=== PATIENT | female | born 1950 | race Caucasian/White ===

== ENCOUNTER 2018-06-11 14:04 | Inpatient (IN) ==
[2018-06-11 14:26] LABS: Basophils % 0.3 % (0.0-0.8); Eosinophils # 0.2 10*3/uL (0.0-0.87); Eosinophils % 2.2 % (0.00-10.9); Hematocrit 36.2 VOL% (35.7-47.0); Hemoglobin 12.1 GM/DL (12.0-16.0); Immature Granulocytes % 0.3 %; Immature Granulocytes Absolute 0.03 #; Lymphocytes # 2.1 10*3/uL (1.4-4.0); Lymphocytes % 22.9 % (21.3-54.2); Mean Corpuscular HGB Conc 33.4 GM/DL (32-36); Mean Corpuscular Hemoglobin 29 PG (27-34); Mean Corpuscular Volume 85.4 FL (87-102); Mean Platelet Volume 9.2 FL (9.6-12.0); Monocytes # 0.7 10*3/uL (0.11-0.8); Monocytes % 7.3 % (1.7-12.7); Neutrophils # 6.2 10*3/uL (1.4-7.4); Platelet Count 224 T/CUMM (130-400); Red Blood Count 4.24 MC/CUMM (3.8-5.5); Red Cell Distribution Width 13.2 % (9.3-17.3); White Blood Count 9.2 T/CUMM (4-12)
[2018-06-11 14:45] LABS: PT Patient Result 10.2 SECS; Partial Thromboplastin Time 25.2 SECS (0-40)
[2018-06-11 15:55] LABS: Albumin 3.7 G/DL (3.4-5.0); Bilirubin,Total 0.4 MG/DL (0.2-1.0); Calcium 9.6 MG/DL (8.5-10.1); Osmolality,Calculated 280.5 MOS/KG (273-304); Potassium 3.5 MMOL/L (3.5-5.1)
[2018-06-11] MEDS ORDERED: FAMOTIDINE 20 MG/2 ML VIAL IV STA (16:20)
[2018-06-11] MEDS ORDERED: ALUM/MAG/SIMETH/LIDO VISC 1:1 30 ML BOTTLE PO STA (16:20)
[2018-06-11 18:37] LABS: Troponin I < 0.015 NG/ML (0.00-0.045)
[2018-06-11] MEDS ORDERED: GLUCAGON 1 MG VIAL IM PRN (19:08)
[2018-06-11] MEDS ORDERED: DEXTROSE 50% 25 GM/50 ML VIAL IV PRN (19:08)
[2018-06-11] MEDS ORDERED: ACETAMINOPHEN 325 MG TABLET PO PRN (19:08)
[2018-06-11] MEDS ORDERED: ONDANSETRON 4 MG/2 ML VIAL IV PRN (19:08)
[2018-06-11] MEDS: INSULIN REGULAR 100 UNIT/ML SUBCUT SCH ×2 (20:20→23:03)
[2018-06-11 20:34] LABS: Apearance,Urine Slightly Hazy (Clear); Bacteria,Urine Occasional /HPF (Few); Bilirubin,Urine Negative (Negative); Blood, Urine Negative (Negative); Glucose,Urine (UA) Negative (Negative); Ketones,Urine Negative (Negative); Nitrite,Urine Negative (Negative); Protein,Urine Negative; RBC,Urine <1 /HPF (0-4); Squamous Epithelial Cell,Urine Occasional /HPF (0-10); Urine Color Yellow (Yellow); Urine Specific Gravity 1.009 (1.001-1.035); Urine Urobilinogen < 2.0 EU/DL (0.2-1.0); WBC,Urine 4 /HPF (0-6)
[2018-06-11 20:56] LABS: Troponin I < 0.015 NG/ML (0.00-0.045)
[2018-06-11] MEDS ORDERED: SIMVASTATIN 10 MG TABLET PO SCH (21:00)
[2018-06-11] MEDS ORDERED: ENOXAPARIN 40 MG/0.4 ML SYRINGE SUBCUT SCH (21:00)
[2018-06-11] MEDS ORDERED: ATENOLOL 25 MG TABLET PO SCH ×2 (21:00→21:27)
[2018-06-11] MEDS ORDERED: MAGNESIUM CHLORIDE 64 MG TABLET PO SCH (21:00)
[2018-06-11] MEDS ORDERED: hydroCHLOROthiazide 12.5 MG CAPSULE PO SCH (21:00)
[2018-06-11] MEDS ORDERED: ATENOLOL 50 MG TABLET PO SCH (21:28)
[2018-06-11] MEDS: ATENOLOL 50 MG TABLET PO SCH (22:18)
[2018-06-11] MEDS: OLMESARTAN 20 MG TABLET PO SCH (22:18)
[2018-06-11] MEDS ORDERED: ATORVASTATIN 20 MG TABLET PO SCH (22:30)
[2018-06-12 04:55] LABS: Basophils % 0.4 % (0.0-0.8); Eosinophils # 0.2 10*3/uL (0.0-0.87); Eosinophils % 2.6 % (0.00-10.9); Hematocrit 35.7 VOL% (35.7-47.0); Hemoglobin 11.8 GM/DL (12.0-16.0); Immature Granulocytes % 0.2 %; Immature Granulocytes Absolute 0.02 #; Lymphocytes # 2.8 10*3/uL (1.4-4.0); Lymphocytes % 31.3 % (21.3-54.2); Mean Corpuscular HGB Conc 33.1 GM/DL (32-36); Mean Corpuscular Hemoglobin 28 PG (27-34); Mean Corpuscular Volume 85.8 FL (87-102); Mean Platelet Volume 9.6 FL (9.6-12.0); Monocytes # 0.7 10*3/uL (0.11-0.8); Monocytes % 7.8 % (1.7-12.7); Neutrophils # 5.2 10*3/uL (1.4-7.4); Neutrophils % 57.7 % (38.7-73.9); Platelet Count 222 T/CUMM (130-400); Red Blood Count 4.16 MC/CUMM (3.8-5.5); Red Cell Distribution Width 13.2 % (9.3-17.3)
[2018-06-12] MEDS: INSULIN REGULAR 100 UNIT/ML SUBCUT SCH ×4 (05:08→23:57)
[2018-06-12 05:31] LABS: Bilirubin,Total 1.2 MG/DL (0.2-1.0); Total Protein 6.9 G/DL (6.4-8.3)
[2018-06-12 05:32] LABS: Albumin 3.4 G/DL (3.4-5.0); Osmolality,Calculated 280.4 MOS/KG (273-304); Potassium 3.3 MMOL/L (3.5-5.1); Risk Ratio 4.54; VLDL CHOLESTEROL 51.8 MG/DL
[2018-06-12 05:41] LABS: Troponin I < 0.015 NG/ML (0.00-0.045)
[2018-06-12] MEDS ORDERED: POTASSIUM CHLORIDE 10 MEQ TABLET PO SCH (09:00)
[2018-06-12] MEDS: POTASSIUM CHLORIDE 10 MEQ TABLET PO SCH (10:43)
[2018-06-12] MEDS: ASPIRIN CHEW 81 MG TABLET PO SCH (10:43)
[2018-06-12] MEDS: ATORVASTATIN 20 MG TABLET PO SCH (10:43)
[2018-06-12] MEDS: PANTOPRAZOLE 40 MG TABLET PO SCH (10:43)
[2018-06-12] MEDS: MAGNESIUM CHLORIDE 64 MG TABLET PO SCH (10:43)
[2018-06-12] MEDS ORDERED: hydrALAZINE 20 MG/1 ML VIAL IV PRN (12:21)
[2018-06-12] MEDS: OMEGA 3 ACID ETHYL ESTERS 1 GM CAPSULE PO SCH ×2 (15:13→20:38)
[2018-06-12] MEDS: amLODIPine 5 MG TABLET PO SCH ×2 (15:13→20:39)
[2018-06-12] MEDS: metFORMIN 500 MG TABLET PO SCH (17:41)
[2018-06-12] MEDS ORDERED: PROMETHAZINE 25 MG/1 ML VIAL IM ONE (20:08)
[2018-06-12] MEDS ORDERED: BUTALBITAL/ACETAMIN/CAFFEINE 50-325-40 MG TABLET PO PRN (20:09)
[2018-06-12] MEDS: ATENOLOL 50 MG TABLET PO SCH (20:38)
[2018-06-12] MEDS: OLMESARTAN 20 MG TABLET PO SCH (20:38)
[2018-06-13] MEDS: INSULIN REGULAR 100 UNIT/ML SUBCUT SCH ×3 (06:08→19:10)
[2018-06-13] MEDS ORDERED: PROPOFOL 200 MG/20 ML VIAL IV ONE (09:00)
[2018-06-13] MEDS ORDERED: COENZYME Q10 100 MG CAPSULE PO SCH (09:00)
[2018-06-13] MEDS ORDERED: LIDOCAINE 1% 5 ML VIAL ONE (09:00)
[2018-06-13] MEDS ORDERED: CHOLECALCIFEROL 1,000 UNIT TABLET PO SCH (09:00)
[2018-06-13] MEDS: amLODIPine 5 MG TABLET PO SCH ×2 (09:05→20:25)
[2018-06-13] MEDS: metFORMIN 500 MG TABLET PO SCH ×2 (09:05→17:44)
[2018-06-13] MEDS: ATORVASTATIN 20 MG TABLET PO SCH (09:05)
[2018-06-13] MEDS: PANTOPRAZOLE 40 MG TABLET PO SCH (10:50)
[2018-06-13] MEDS: ASPIRIN CHEW 81 MG TABLET PO SCH (10:50)
[2018-06-13] MEDS: POTASSIUM CHLORIDE 10 MEQ TABLET PO SCH (10:50)
[2018-06-13] MEDS: OMEGA 3 ACID ETHYL ESTERS 1 GM CAPSULE PO SCH ×2 (10:50→20:25)
[2018-06-13] MEDS: FLUCONAZOLE 100 MG TABLET PO SCH (14:34)
[2018-06-13] MEDS: OLMESARTAN 20 MG TABLET PO SCH (20:25)
[2018-06-13] MEDS: ATENOLOL 50 MG TABLET PO SCH (20:25)
[2018-06-14] MEDS: INSULIN REGULAR 100 UNIT/ML SUBCUT SCH ×3 (01:46→11:22)
[2018-06-14] MEDS: MAGNESIUM CHLORIDE 64 MG TABLET PO SCH (08:43)
[2018-06-14] MEDS: POTASSIUM CHLORIDE 10 MEQ TABLET PO SCH (08:43)
[2018-06-14] MEDS: amLODIPine 5 MG TABLET PO SCH (08:43)
[2018-06-14] MEDS: FLUCONAZOLE 100 MG TABLET PO SCH (08:43)
[2018-06-14] MEDS: OMEGA 3 ACID ETHYL ESTERS 1 GM CAPSULE PO SCH (08:44)
[2018-06-14] MEDS: metFORMIN 500 MG TABLET PO SCH (08:44)
[2018-06-14] MEDS: PANTOPRAZOLE 40 MG TABLET PO SCH (08:44)
[2018-06-14] MEDS: ASPIRIN CHEW 81 MG TABLET PO SCH (08:44)
[2018-06-14] MEDS: ATORVASTATIN 20 MG TABLET PO SCH (08:44)
[2018-06-14 11:40] VITALS: BP 139/74
== END 2018-06-14 12:08 | disposition home or self-care (01) | DRG 370 ==
LOC: N.ED 14:04 → N.EDINP 17:52 → N.ICU 19:10 → N.3E 06-13 06:06
PROVIDERS: ADMIT Internal Medicine; ATTEND Internal Medicine

== ENCOUNTER 2018-07-03 12:50 | Observation (INO) ==
[2018-07-03] MEDS ORDERED: ASPIRIN 325 MG TABLET PO STA (13:15)
[2018-07-03] MEDS ORDERED: NITROGLYCERIN SL 0.4 MG TABLET SL STA (13:44)
[2018-07-03 13:53] LABS: Basophils % 0.3 % (0.0-0.8); Eosinophils # 0.2 10*3/uL (0.0-0.87); Eosinophils % 1.7 % (0.00-10.9); Hematocrit 36.6 VOL% (35.7-47.0); Hemoglobin 12.2 GM/DL (12.0-16.0); Immature Granulocytes % 0.3 %; Immature Granulocytes Absolute 0.03 #; Lymphocytes # 1.8 10*3/uL (1.4-4.0); Lymphocytes % 20.9 % (21.3-54.2); Mean Corpuscular HGB Conc 33.3 GM/DL (32-36); Mean Corpuscular Hemoglobin 29 PG (27-34); Mean Corpuscular Volume 85.7 FL (87-102); Mean Platelet Volume 9.3 FL (9.6-12.0); Monocytes # 0.6 10*3/uL (0.11-0.8); Neutrophils % 69.8 % (38.7-73.9); Platelet Count 211 T/CUMM (130-400); Red Blood Count 4.27 MC/CUMM (3.8-5.5); Red Cell Distribution Width 13.7 % (9.3-17.3); White Blood Count 8.7 T/CUMM (4-12)
[2018-07-03 14:47] LABS: Albumin 3.9 G/DL (3.4-5.0); Bilirubin,Total 0.7 MG/DL (0.2-1.0); Calcium 9.6 MG/DL (8.5-10.1); Osmolality,Calculated 274.7 MOS/KG (273-304); Total Protein 7.2 G/DL (6.4-8.3)
[2018-07-03] MEDS ORDERED: DOCUSATE SODIUM 100 MG CAPSULE PO PRN (16:10)
[2018-07-03] MEDS ORDERED: NITROGLYCERIN SL 0.4 MG TABLET SL PRN (16:10)
[2018-07-03] MEDS ORDERED: LACTULOSE 20 GM/30 ML UDCUP PO PRN (16:10)
[2018-07-03] MEDS ORDERED: ONDANSETRON 4 MG/2 ML VIAL IV PRN (16:10)
[2018-07-03] MEDS ORDERED: ACETAMINOPHEN 325 MG TABLET PO PRN (16:10)
[2018-07-03] MEDS ORDERED: MORPHINE 4 MG/1 ML VIAL IV PRN (16:10)
[2018-07-03] MEDS ORDERED: INFLUENZA VIRUS VACCINE 0.5 ML SYRINGE IM ONE (17:45)
[2018-07-03] MEDS: SODIUM CHLORIDE 0.9% 1,000 ML IV SCH (18:18)
[2018-07-03] MEDS: ENOXAPARIN 60 MG/0.6 ML SYRINGE SUBCUT SCH (18:18)
[2018-07-03] MEDS: PANTOPRAZOLE 40 MG TABLET PO SCH (18:18)
[2018-07-03] MEDS ORDERED: ATORVASTATIN 20 MG TABLET PO SCH (21:00)
[2018-07-03] MEDS ORDERED: OMEGA 3 ACID ETHYL ESTERS 1 GM CAPSULE PO SCH (21:00)
[2018-07-03] MEDS ORDERED: ATENOLOL 50 MG TABLET PO SCH (21:00)
[2018-07-03] MEDS: hydroCHLOROthiazide 12.5 MG CAPSULE PO SCH (22:08)
[2018-07-03] MEDS: OLMESARTAN 20 MG TABLET PO SCH (22:08)
[2018-07-04 04:56] LABS: Basophils % 0.3 % (0.0-0.8); Eosinophils # 0.2 10*3/uL (0.0-0.87); Eosinophils % 2.6 % (0.00-10.9); Hematocrit 33.1 VOL% (35.7-47.0); Hemoglobin 10.5 GM/DL (12.0-16.0); Immature Granulocytes % 0.1 %; Immature Granulocytes Absolute 0.01 #; Lymphocytes % 28.5 % (21.3-54.2); Mean Corpuscular HGB Conc 31.7 GM/DL (32-36); Mean Corpuscular Hemoglobin 27 PG (27-34); Mean Corpuscular Volume 86.4 FL (87-102); Mean Platelet Volume 9.4 FL (9.6-12.0); Monocytes # 0.6 10*3/uL (0.11-0.8); Monocytes % 8.7 % (1.7-12.7); Neutrophils # 4.1 10*3/uL (1.4-7.4); Neutrophils % 59.8 % (38.7-73.9); Platelet Count 178 T/CUMM (130-400); Red Blood Count 3.83 MC/CUMM (3.8-5.5); Red Cell Distribution Width 13.7 % (9.3-17.3); White Blood Count 6.9 T/CUMM (4-12)
[2018-07-04 05:28] LABS: Calcium 8.9 MG/DL (8.5-10.1); Osmolality,Calculated 281.3 MOS/KG (273-304); Potassium 3.7 MMOL/L (3.5-5.1); Risk Ratio 3.53; VLDL CHOLESTEROL 41.4 MG/DL
[2018-07-04] MEDS: ENOXAPARIN 60 MG/0.6 ML SYRINGE SUBCUT SCH (06:11)
[2018-07-04] MEDS: SODIUM CHLORIDE 0.9% 1,000 ML IV SCH (06:56)
[2018-07-04] MEDS ORDERED: MAGNESIUM SULF RIDER 2 GM in PREMIX 1 EACH IV PRN (08:50)
[2018-07-04] MEDS ORDERED: POTASSIUM CHLORIDE RIDER 10 MEQ in PREMIX 1 EACH IV PRN (08:50)
[2018-07-04] MEDS ORDERED: diphenhydrAMINE CAP 25 MG CAPSULE PO ONE (08:50)
[2018-07-04] MEDS ORDERED: DIAZEPAM 5 MG TABLET PO ONE (08:50)
[2018-07-04] MEDS ORDERED: COENZYME Q10 100 MG CAPSULE PO SCH (09:00)
[2018-07-04] MEDS ORDERED: MAGNESIUM CHLORIDE 64 MG TABLET PO SCH (09:00)
[2018-07-04] MEDS: OMEGA 3 ACID ETHYL ESTERS 1 GM CAPSULE PO SCH ×2 (09:27→16:41)
[2018-07-04] MEDS: ASPIRIN EC 81 MG TABLET PO SCH (12:29)
[2018-07-04] MEDS: PANTOPRAZOLE 40 MG TABLET PO SCH (12:29)
[2018-07-04] MEDS: ATENOLOL 50 MG TABLET PO SCH (12:29)
[2018-07-04] MEDS ORDERED: HEPARIN/NACL 0.9% 2 UNITS/ML 1,000 ML IV ONE (13:24)
[2018-07-04] MEDS ORDERED: LIDOCAINE 1%/EPI INJ 20 ML VIAL ONE (13:32)
[2018-07-04] MEDS ORDERED: MIDAZOLAM 2 MG/2 ML VIAL ONE (13:38)
[2018-07-04] MEDS ORDERED: fentaNYL 100 MCG/2 ML VIAL ONE (13:38)
[2018-07-04] MEDS ORDERED: ENOXAPARIN 40 MG/0.4 ML SYRINGE SUBCUT SCH (17:00)
[2018-07-04] MEDS: hydroCHLOROthiazide 12.5 MG CAPSULE PO SCH (20:44)
[2018-07-04] MEDS: OLMESARTAN 20 MG TABLET PO SCH (20:44)
[2018-07-04] MEDS ORDERED: ATORVASTATIN 20 MG TABLET PO SCH (21:00)
[2018-07-05 03:24] LABS: Basophils % 0.4 % (0.0-0.8); Eosinophils # 0.2 10*3/uL (0.0-0.87); Eosinophils % 2.4 % (0.00-10.9); Hematocrit 34.9 VOL% (35.7-47.0); Hemoglobin 11.2 GM/DL (12.0-16.0); Immature Granulocytes % 0.4 %; Immature Granulocytes Absolute 0.03 #; Lymphocytes # 1.9 10*3/uL (1.4-4.0); Mean Corpuscular HGB Conc 32.1 GM/DL (32-36); Mean Corpuscular Hemoglobin 28 PG (27-34); Mean Corpuscular Volume 86.8 FL (87-102); Mean Platelet Volume 9.5 FL (9.6-12.0); Monocytes # 0.7 10*3/uL (0.11-0.8); Monocytes % 9.7 % (1.7-12.7); Neutrophils # 4.2 10*3/uL (1.4-7.4); Neutrophils % 60.1 % (38.7-73.9); Platelet Count 187 T/CUMM (130-400); Red Blood Count 4.02 MC/CUMM (3.8-5.5); Red Cell Distribution Width 13.6 % (9.3-17.3)
[2018-07-05 04:02] LABS: Osmolality,Calculated 281.3 MOS/KG (273-304); Potassium 3.7 MMOL/L (3.5-5.1)
[2018-07-05 08:06] VITALS: BP 157/79
[2018-07-05] MEDS: ASPIRIN EC 81 MG TABLET PO SCH (09:11)
[2018-07-05] MEDS: OMEGA 3 ACID ETHYL ESTERS 1 GM CAPSULE PO SCH (09:11)
[2018-07-05] MEDS: PANTOPRAZOLE 40 MG TABLET PO SCH (09:11)
[2018-07-05] MEDS: ATENOLOL 50 MG TABLET PO SCH (09:12)
[2018-07-05] MEDS ORDERED: MAGNESIUM SULF RIDER 2 GM in PREMIX 1 EACH IV PRN (09:42)
[2018-07-05] MEDS ORDERED: MAGNESIUM SULF RIDER 4 GM in PREMIX 1 EACH IV PRN (09:42)
== END 2018-07-05 10:04 | disposition home or self-care (01) ==
LOC: N.ED 12:50 → N.EDINP 12:50 → N.TELEN 18:08
PROVIDERS: ADMIT Internal Medicine; ATTEND Internal Medicine
PROC: CLCCHCL (ICD-10-PCS; 2018-07-04 13:45)

== ENCOUNTER 2021-01-11 05:40 | Inpatient (IN) ==
[2021-01-11] MEDS ORDERED: ceFAZolin 1,000 MG VIAL ONE (06:01)
[2021-01-11] MEDS ORDERED: PHENYLEPHRINE 1 MG/10 ML SYRINGE IV ONE (06:11)
[2021-01-11] MEDS ORDERED: LIDOCAINE 2% 5 ML VIAL ONE (06:11)
[2021-01-11] MEDS ORDERED: SODIUM CHLORIDE 0.9% 100 ML IV ONE (06:11)
[2021-01-11] MEDS ORDERED: propofoL 200 MG/20 ML VIAL IV ONE (06:11)
[2021-01-11] MEDS ORDERED: fentaNYL 100 MCG/2 ML VIAL ONE (06:11)
[2021-01-11] MEDS ORDERED: DEXMEDETOMIDINE 200 MCG/2 ML VIAL ONE (06:11)
[2021-01-11] MEDS ORDERED: BUPIVACAINE SPINAL 0.75% 2 ML AMP SPINAL ONE (06:12)
[2021-01-11] MEDS ORDERED: TRANEXAMIC ACID 1,000 MG/10 ML VIAL ONE (06:12)
[2021-01-11] MEDS ORDERED: ONDANSETRON 4 MG/2 ML VIAL ONE (06:12)
[2021-01-11] MEDS ORDERED: DEXAMETHASONE 4 MG/1 ML VIAL ONE (06:23)
[2021-01-11] MEDS ORDERED: ROPIVACAINE 0.5% 30 ML VIAL ONE (06:23)
[2021-01-11] MEDS ORDERED: LIDOCAINE 1% 5 ML VIAL ONE (06:23)
[2021-01-11] MEDS ORDERED: CLINDAMYCIN INJ 50 ML IV ONE (06:29)
[2021-01-11] MEDS ORDERED: VANCOMYCIN INJ 1,000 MG in SODIUM CHLORIDE 0.9% 250 ML IV ONE (06:30)
[2021-01-11] MEDS ORDERED: FAMOTIDINE 20 MG TABLET PO ONE (06:34)
[2021-01-11] MEDS: LACTATED RINGERS 1,000 ML IV SCH (06:38)
[2021-01-11] MEDS ORDERED: HYDROmorphone 2 MG/1 ML VIAL IV PRN (07:19)
[2021-01-11] MEDS ORDERED: TEMAZEPAM 7.5 MG CAPSULE PO PRN (07:19)
[2021-01-11] MEDS ORDERED: diphenhydrAMINE CAP 25 MG CAPSULE PO PRN (07:19)
[2021-01-11] MEDS ORDERED: BISACODYL 10 MG SUPP RECTAL PRN (07:19)
[2021-01-11] MEDS ORDERED: ONDANSETRON 4 MG/2 ML VIAL IV PRN ×2 (07:19→08:39)
[2021-01-11] MEDS ORDERED: MAGNESIUM HYDROXIDE SUSP 30 ML UDCUP PO PRN (07:19)
[2021-01-11] MEDS ORDERED: GLUCAGON 1 MG VIAL IM PRN (07:23)
[2021-01-11] MEDS ORDERED: DEXTROSE 50% 25 GM/50 ML VIAL IV PRN (07:23)
[2021-01-11] MEDS ORDERED: CLINDAMYCIN INJ 900 MG in PREMIX 1 EACH IV ONE (07:30)
[2021-01-11] MEDS ORDERED: MEPERIDINE 25 MG/1 ML VIAL ONE (08:37)
[2021-01-11] MEDS ORDERED: MEPERIDINE 25 MG/1 ML VIAL IV PRN (08:39)
[2021-01-11] MEDS: HYDROmorphone 2 MG/1 ML VIAL IV PRN ×2 (10:23→16:12)
[2021-01-11] MEDS: INSULIN REGULAR 100 UNIT/ML SUBCUT SCH ×4 (11:16→20:15)
[2021-01-11] MEDS: CLINDAMYCIN INJ 900 MG in PREMIX 1 EACH IV SCH ×2 (13:36→21:24)
[2021-01-11] MEDS: DOCUSATE SODIUM 100 MG CAPSULE PO SCH (20:02)
[2021-01-11] MEDS: FONDAPARINUX 2.5 MG/0.5 ML SYRINGE SUBCUT SCH (20:02)
[2021-01-12] MEDS: HYDROmorphone 2 MG/1 ML VIAL IV PRN ×3 (00:47→16:06)
[2021-01-12 05:27] LABS: Basophils % 0.2 % (0.0-0.8); Eosinophils % 0.1 % (0.00-10.9); Hemoglobin 10.3 GM/DL (12.0-16.0); Immature Granulocytes % 0.5 %; Immature Granulocytes Absolute 0.05 #; Lymphocytes % 10.1 % (21.3-54.2); Mean Corpuscular HGB Conc 34.3 GM/DL (32-36); Mean Corpuscular Volume 85.7 FL (87-102); Mean Platelet Volume 9.3 FL (9.6-12.0); Monocytes % 9.3 % (1.7-12.7); Neutrophils % 79.8 % (38.7-73.9); Platelet Count 198 T/CUMM (130-400); Red Cell Distribution Width 13.2 % (9.3-17.3); White Blood Count 10.3 T/CUMM (4-12)
[2021-01-12 05:49] LABS: Calcium 8.7 MG/DL (8.5-10.1); Osmolality,Calculated 269.4 MOS/KG (273-304); Potassium 3.7 MMOL/L (3.5-5.1)
[2021-01-12] MEDS: LACTATED RINGERS 1,000 ML IV SCH (06:24)
[2021-01-12] MEDS: INSULIN REGULAR 100 UNIT/ML SUBCUT SCH ×4 (08:54→20:53)
[2021-01-12] MEDS ORDERED: MAGNESIUM CHLORIDE 64 MG TABLET PO SCH (09:00)
[2021-01-12] MEDS: atenoloL 50 MG TABLET PO SCH (09:12)
[2021-01-12] MEDS: CHOLECALCIFEROL 1,000 UNIT TABLET PO SCH (09:13)
[2021-01-12] MEDS: DOCUSATE SODIUM 100 MG CAPSULE PO SCH ×2 (09:13→20:53)
[2021-01-12] MEDS: metFORMIN 500 MG TABLET PO SCH (09:13)
[2021-01-12] MEDS: OLMESARTAN 20 MG TABLET PO SCH (09:13)
[2021-01-12] MEDS: hydroCHLOROthiazide 12.5 MG CAPSULE PO SCH (09:13)
[2021-01-12] MEDS: PANTOPRAZOLE 40 MG TABLET PO PRN (09:14)
[2021-01-12] MEDS: LACTULOSE 20 GM/30 ML UDCUP PO PRN (09:14)
[2021-01-12] MEDS: COENZYME Q10 100 MG CAPSULE PO SCH (09:17)
[2021-01-12] MEDS: POTASSIUM CHLORIDE 10 MEQ TABLET PO SCH (09:20)
[2021-01-12] MEDS: FONDAPARINUX 2.5 MG/0.5 ML SYRINGE SUBCUT SCH (20:53)
[2021-01-13] MEDS: HYDROmorphone 2 MG/1 ML VIAL IV PRN ×3 (04:50→20:11)
[2021-01-13] MEDS: LACTATED RINGERS 1,000 ML IV SCH (05:05)
[2021-01-13 05:26] LABS: Basophils % 0.2 % (0.0-0.8); Eosinophils # 0.1 10*3/uL (0.0-0.87); Eosinophils % 0.5 % (0.00-10.9); Hematocrit 34.2 VOL% (35.7-47.0); Hemoglobin 11.4 GM/DL (12.0-16.0); Immature Granulocytes % 0.4 %; Immature Granulocytes Absolute 0.05 #; Lymphocytes # 1.2 10*3/uL (1.4-4.0); Lymphocytes % 10.1 % (21.3-54.2); Mean Corpuscular HGB Conc 33.3 GM/DL (32-36); Mean Corpuscular Volume 87.2 FL (87-102); Mean Platelet Volume 9.3 FL (9.6-12.0); Monocytes % 10.4 % (1.7-12.7); Neutrophils % 78.4 % (38.7-73.9); Platelet Count 224 T/CUMM (130-400); Red Blood Count 3.92 MC/CUMM (3.8-5.5); Red Cell Distribution Width 13.3 % (9.3-17.3)
[2021-01-13 05:34] LABS: Calcium 9.1 MG/DL (8.5-10.1); Osmolality,Calculated 265.5 MOS/KG (273-304); Potassium 3.7 MMOL/L (3.5-5.1)
[2021-01-13] MEDS: LACTULOSE 20 GM/30 ML UDCUP PO PRN (08:18)
[2021-01-13] MEDS: OLMESARTAN 20 MG TABLET PO SCH (08:19)
[2021-01-13] MEDS: PANTOPRAZOLE 40 MG TABLET PO PRN (08:19)
[2021-01-13] MEDS: DOCUSATE SODIUM 100 MG CAPSULE PO SCH ×2 (08:19→20:12)
[2021-01-13] MEDS: hydroCHLOROthiazide 12.5 MG CAPSULE PO SCH (08:19)
[2021-01-13] MEDS: atenoloL 50 MG TABLET PO SCH (08:19)
[2021-01-13] MEDS: metFORMIN 500 MG TABLET PO SCH (08:19)
[2021-01-13] MEDS: INSULIN REGULAR 100 UNIT/ML SUBCUT SCH ×4 (08:25→20:13)
[2021-01-13] MEDS: MAGNESIUM CHLORIDE 64 MG TABLET PO SCH (10:49)
[2021-01-13] MEDS: FONDAPARINUX 2.5 MG/0.5 ML SYRINGE SUBCUT SCH (20:12)
[2021-01-14] MEDS: LACTATED RINGERS 1,000 ML IV SCH (06:17)
[2021-01-14 07:06] VITALS: BP 123/69
[2021-01-14] MEDS: INSULIN REGULAR 100 UNIT/ML SUBCUT SCH (07:58)
[2021-01-14] MEDS: metFORMIN 500 MG TABLET PO SCH (08:52)
[2021-01-14] MEDS: POTASSIUM CHLORIDE 10 MEQ TABLET PO SCH (08:52)
[2021-01-14] MEDS: OLMESARTAN 20 MG TABLET PO SCH (08:52)
[2021-01-14] MEDS: CHOLECALCIFEROL 1,000 UNIT TABLET PO SCH (08:52)
[2021-01-14] MEDS: MAGNESIUM CHLORIDE 64 MG TABLET PO SCH (08:52)
[2021-01-14] MEDS: PANTOPRAZOLE 40 MG TABLET PO PRN (08:53)
[2021-01-14] MEDS: DOCUSATE SODIUM 100 MG CAPSULE PO SCH (08:53)
[2021-01-14] MEDS: atenoloL 50 MG TABLET PO SCH (08:53)
[2021-01-14] MEDS: hydroCHLOROthiazide 12.5 MG CAPSULE PO SCH (09:21)
[2021-01-14] MEDS: COENZYME Q10 100 MG CAPSULE PO SCH (09:21)
== END 2021-01-14 11:00 | disposition home health service (06) | DRG 470 ==
LOC: N.OR 05:40 → N.SDSINP 05:42 → N.3E 09:53
PROVIDERS: ADMIT Orthopaedic Surgery; ATTEND Orthopaedic Surgery